=== PATIENT | male | born 1975 | race Asian ===

== ENCOUNTER 2024-10-20 00:41 | Emergency (ER) | payer SELFPAY ==
[2024-10-20 00:44] VITALS: BMI 22.4
[2024-10-20 01:03] VITALS: BP 133/80; PULSE 93; RESP 19; TEMP 37.1; O2SAT 98
--- NOTE | 2024-10-20 01:25 | XR_ITS ---
Examination: CT maxillofacial, without intravenous contrast. 2-D sagittal reconstructions. 3-D reconstructions. Date and time of exam:October 20, 2024 at 0249 hours INDICATIONS: Patient fell today with injury to the face, facial pain CTDI: vol (mGy):14.4 DLP: (mGycm):281 Technique: Multiple axial images of maxillofacial region, 3.0 mm slice thickness. 2-D sagittal and coronal reconstructions. 3-D reconstructions. Low dose protocols were performed. One or more of the following dose reduction techniques were used; automated exposure control, adjustment of the mA and/or KV according to patient size, use of iterative reconstruction technique. Findings: Mandible and maxilla is intact No acute nasal bone fracture No depression zygomatic arches Orbital rims appear intact There is subtle increased density in the left retro-orbital region, clinical correlation advised IMPRESSION: No acute facial fracture Subtle increased density in the left retro-orbital region, contusion in the retro-orbital fat is included in the differential, clinical correlation advised.
--- NOTE | 2024-10-20 01:25 | XR_ITS ---
Examination: CT cervical spine without contrast 2-D sagittal reconstructions 2-D coronal reconstructions 3-D reconstructions. Exam date and time:October 20, 2024 0249 hours INDICATIONS: Patient fell today with injury to the neck, neck pain CTDI:vol (mGy) 14.4 DLP: (mGycm) 373 Technique: Multiple 2 mm axial sections of the cervical spine have been obtained. The coronal and sagittal reconstructions have been obtained. 3-D reconstructions have been obtained. Low dose protocols were performed. One or more of the following dose reduction techniques were used; automated exposure control, adjustment of the mA and/or KV according to patient size, use of iterative reconstruction technique. Findings: Axial sections demonstrate intact base of the skull. C1 exhibit satisfactory relationship to the odontoid. No acute cervical vertebral body fracture seen. Alignment posterior spinous processes satisfactory. Impression: No acute cervical fracture. Right apical parenchymal disease, recommend AP chest AP lordotic chest follow-up
--- NOTE | 2024-10-20 01:25 | XR_ITS ---
Examination: CT brain head without contrast. 2-D sagittal coronal reconstructions Date and time of exam:October 20, 2024, 0249 hours INDICATIONS: Patient fell today with injury to the head, head pain and facial pain CTDI: vol (mGy):51.3 DLP: (mGycm):1003 Technique: Multiple CT axial sections of the brain have been obtained, 5 mm slice thickness. Contrast has not been administered. 2-D sagittal, coronal reconstructions have been obtained Low dose protocols were performed. One or more of the following dose reduction techniques were used; automated exposure control, adjustment of the mA and/or KV according to patient size, use of iterative reconstruction technique. Findings: No significant ventricular enlargement. Intra-axial or extra-axial hemorrhage density is not seen. No mass effect or midline shift Basal cisterns are not remarkable. Fourth ventricle is midline. Cranial vault intact. Ethmoid maxillary antral chronic sinusitis Impression: Negative for acute hemorrhage, mass effect or midline shift
--- NOTE | 2024-10-20 01:26 | PD.EDRME ---
Rapid Medical Screening Exam [facility] Arrival date/time: 10/20/24 00:41 49M with no significant PMH presents to ED with R nose and L eyelid lac after trip and fall. Patient denies LOC, AMS, seizures, N/V, and vision changes. Patient has not had a tetanus shot in the past 5 years. Chief Complaint: Fall Vital signs: Vital Signs Temperature 98.7 F 10/20/24 01:03 Pulse Rate 93 10/20/24 01:03 Respiratory Rate 19 10/20/24 01:03 Blood Pressure 133/80 H 10/20/24 01:03 Pulse Oximetry (%) 98 10/20/24 01:03 Oxygen Delivery Method Room Air 10/20/24 01:03
--- NOTE | 2024-10-20 01:41 | PD.EDFALL ---
ED Fall Injury RME/HPI General Chief Complaint: Fall Stated Complaint: FELL , FACIAL INJURY Time Seen by Provider: 10/20/24 01:40 Arrival date/time: 10/20/24 00:41 RME / HPI RME / HPI Narrative: 10/20/24 00:41 49M with no significant PMH presents to ED with R nose and L eyelid lac after trip and fall. Patient denies LOC, AMS, seizures, N/V, and vision changes. Patient has not had a tetanus shot in the past 5 years. --------- This section includes all my notes and documentations, including HPI, PE, and ED course. Miles Galloway MD HPI: 49yo male with no significant past medical history presents to the ED for a fall. Patient states he tripped and fell when he was outside just [employer] and hit his face on the metal part of the grill. He endorses having a laceration to his nose and eyelid. He denies any loss of consciousness. He denies any headache, neck pain, extremity pain, other pain or any other associated symptoms. No other complaints reported. ROS: All negative except as documented in HPI. Physical Exam: General: Alert and oriented. No acute distress when remaining still. Eyes: Conjunctivae and lids clear. ENT: No nasal congestion. Neck: Supple. Heart: RRR. Lungs: No respiratory distress. Good air movement. No rhonchi, wheezing, rales. Abdomen: Soft and nontender. Legs: No clubbing, cyanosis, edema. Skin: Warm and dry. 1.5 cm laceration to the bridge of the nose. 1 cm laceration to the left lower eyelid. Neuro: Alert and oriented X 3. I reviewed all diagnostic test results. My review of the CT report is At this point, diagnoses include face lacerations. Treatment here included tDap, Lidocaine, Bacitracin, and Augmentin. Significant improvement Based on my best medical judgment, made decision no further evaluation or treatment indicated at this time. Patient understands and agrees to the discharge instructions customized and printed, see below. Discharge instructions from Dr. Galloway: -- Fortunately, there is no very serious injury. Such as brain injury or broken bone or eye injury. -- Your nose laceration was repaired with 3 stitches. Your left eyelid laceration was repaired with 2 stitches. -- Keep each dressing intact for 24 hours. -- After 24 hours, change each dressing once daily. -- First remove each dressing gently. If it does not come off easily, run water through it until it comes off easily. -- Then gently wash with soap and water. -- After completely drying, apply antibiotic ointment and new dressing. -- See your doctor or return here on 10/23/2024 for suture removal. Total of 5 stitches. -- Seek immediate medical care with fever, spreading redness from the wound, or with any concerns. Miles Galloway MD Related Data Allergies Allergy/AdvReac Type Severity Reaction Status Date / Time No Known Allergies Allergy Verified 10/20/24 01:48 Review of Systems Review of Systems Systems Reviewed: All systems reviewed, normal except as documented Past Medical History Social History SMOKING STATUS: Current every day smoker ED Exam Narrative Physical exam: As noted in HPI. Course Quality Measures none Orders Category Date Time Status Wound Care NOW Care 10/20/24 01:[address] cervical spine wo con Stat Exams 10/20/24 01:[address] facial bones wo con Stat Exams 10/20/24 01:[address] head/brain wo con Stat Exams 10/20/24 01:25 Taken Amoxicillin/Pot Clav 875 [Augmentin 875] Med 10/20/24 01:40 Discontinued 1 tab PO X1 ONE Bacitracin Oint pkt Med 10/20/24 01:40 Discontinued 1 gm TOP X1 ONE Lidocaine 1% 20 ml [Xylocaine 1% 20 ML] Med 10/20/24 03:33 Discontinued 20 ml .ROUTE .STK-MED ONE Lidocaine 1% 20 ml [Xylocaine 1% 20 ML] Med 10/20/24 03:34 Discontinued 20 ml INFL X1 ONE TET,DIP/PERT AC (Adult)-Tdap [Boostrix Adult (Tdap) Med 10/20/24 01:25 Discontinued Vacc] 0.5 ml IMI .ONCE ONE Vital Signs Vital signs: Vital Signs Temperature 98.7 F 10/20/24 01:03 Pulse Rate 93 10/20/24 01:03 Respiratory Rate 19 10/20/24 01:03 Blood Pressure 133/80 H 10/20/24 01:03 Pulse Oximetry (%) 98 10/20/24 01:03 Oxygen Delivery Method Room Air 10/20/24 01:03 Procedures -ED Laceration Laceration 1: Site: face (nose) Size (cm): 1.5 Description: linear Depth: simple, single layer Local Anesthetic: lidocaine 1% Amount of anesthesia used (mL): 2 Pre-repair: irrigated extensively Skin layer closed with: nylon Size (cm): 4-0 Number of sutures: 3 Technique: simple, interrupted Laceration 2: Site: face (lower eyelid) Side (If applicable): left Size (cm): 1 Description: linear Depth: simple, single layer Local Anesthetic: lidocaine 1% Amount of anesthesia used (mL): 1 Pre-repair: irrigated extensively Skin layer closed with: nylon Size (cm): 4-0 Number of sutures: 2 Technique: simple, interrupted Fall MDM Narrative MDM Narrative:: Scribe Attestation: 10/20/24 - Jeannine Cueto am scribing for and in the presence of Dr. Galloway. Patient data External records reviewed:: [facility] previous records (Per chart review, patient has no previous ED visits or admissions to this facility.) Clinical information provided by:: patient Social determinants that could affect healthcare access:: none Patient has the following chronic illnesses:: none How is presenting disease/condition affected by chronic disease/condition?: no chronic disease Evaluation data The following diagnostics were reviewed and interpreted by me:: radiology exam(s) Lab and/or radiology exams considered but not ordered:: none Interpretation Summary: Face lacerations Medications / Prescriptions Medications or Prescriptions considered but not ordered:: none Medication administrations:: Medication Administration History Discontinued Medications Amoxicillin/Clavulanate Potassium (Amoxicillin/Pot Clav 875 Tablet) 1 tab PO X1 ONE Stop: 10/20/24 01:41 Last Admin: 10/20/24 02:07 Dose: 1 tab Documented By: ADROE Bacitracin (Bacitracin Oint 1 Gm Packet) 1 gm TOP X1 ONE Stop: 10/20/24 01:41 Last Admin: 10/20/24 02:07 Dose: 1 gm Documented By: ADORE Diphtheria/Tetanus/Acell Pertussis (Diphth,Pertuss(Acell),Tet Vac 0.5 Ml Syr- Adult) 0.5 ml IMi .ONCE ONE Stop: 10/20/24 01:26 Last Admin: 10/20/24 02:06 Dose: 0.5 ml Documented By: ADORE Lidocaine HCl (Lidocaine Hcl 1% 20 Ml Vial) 20 ml INFL X1 ONE Stop: 10/20/24 03:35 Last Admin: 10/20/24 03:49 Dose: 20 ml Documented By: CVL Lidocaine HCl (Lidocaine Hcl 1% 20 Ml Vial) Confirm Administered Dose 20 ml .ROUTE .STK-MED ONE Stop: 10/20/24 03:34 Last Admin: 10/20/24 03:49 Dose: Not Given Documented By: CVL Non-Admin Reason: Duplicate Medication on eMAR tDap, Lidocaine, Bacitracin, Augmentin Consultations Consultation(s) initiated? (list below): No Diagnosis Most likely diagnosis given after review of the tests above:: Face lacerations Admission Indicated Admission indicated?: not indicated Explain why admission is indicated or not indicated:: No criteria for admission. Admission Request Was there a request for admission?: No Disposition Plan Disposition Plan: Discharge Discharge Attestation Discharge Attestation: The patient and all family members were given an opportunity to ask questions and understood the discharge instructions. Discharge instructions specifically effects, indications for sooner follow up or return to the emergency department, and the expected course of current diagnosis. Patient condition: Stable Discharge Plan Plan Patient Disposition: HOME (Self Care) Problem List Clinical Impression: Face lacerations Patient/Caregiver Discharge Instructions Discharge Activity: activity as tolerated Education Materials: ED Laceration, Face: Stitches or Tape Additional Instructions: Discharge instructions from Dr. Galloway:? -- Fortunately, there is no very serious injury. Such as brain injury or broken bone or eye injury. -- Your nose laceration was repaired with 3 stitches. Your left eyelid laceration was repaired with 2 stitches. -- Keep each dressing intact for 24 hours. -- After 24 hours, change each dressing once daily. -- First remove each dressing gently.? If it does not come off easily, run water through it until it comes off easily. -- Then gently wash with soap and water. -- After completely drying, apply antibiotic ointment and new dressing. -- See your doctor or return here on 10/23/2024 for suture removal.? Total of 5 stitches. -- Seek immediate medical care with fever, spreading redness from the wound, or with any concerns. Print Language: [place] Stand Alone Forms: Lauren Award Info., Patient Portal Info Letter
[2024-10-20] MEDS: DIPHTH,PERTUSS(ACELL),TET VAC 0.5 ML SYR- ADULT IMi (02:06)
[2024-10-20] MEDS: AMOXICILLIN/POT CLAV 875 TABLET 1 TAB PO (02:07)
[2024-10-20] MEDS: BACITRACIN OINT 1 GM PACKET TOP (02:07)
--- NOTE | 2024-10-20 03:28 | PRELIM_ITS ---
CT scan of the cervical spine without intravenous contrast (axial sections with sagittal and coronal reformats) October 20, 2024 0249 hours Clinical History: Fall Comparison: No prior study is available for comparison. Findings: There is no evidence of acute fracture or traumatic subluxation. There is straightening of the cervical lordosis, which may be due to muscle spasm or positioning. Degenerative changes are noted in the form of multilevel marginal osteophytes, decreased disc spaces and facet arthropathy. The prevertebral soft tissues are unremarkable. There is scarring in bilateral lung apices. Impression: 1. No evidence of acute fracture or traumatic subluxation. 2. Degenerative changes as described above. 3. Other findings as described above. Suggest clinical correlation and follow up accordingly. Report Electronically Signed By: Willam Rodriguez 10/20/2024 3:27:40 AM [EST]
--- NOTE | 2024-10-20 03:30 | PRELIM_ITS ---
CT scan of the head without intravenous contrast (axial sections with sagittal and coronal reformats) October 20, 2024 0249 hours Clinical History: Fall Comparison: No prior study is available for comparison. Findings: There is no evidence of intracranial hemorrhage, mass effect or midline shift. The ventricles and CSF spaces are unremarkable. The calvarium is intact. There is mild mucosal thickening in the right maxillary sinus. There is a small retention cyst or polyp in the left maxillary sinus. The mastoid air cells and the other visualized paranasal sinuses are clear. Impression: No evidence of intracranial hemorrhage, midline shift or calvarial fracture. Other findings as described above. Suggest clinical correlation and follow up accordingly. Report Electronically Signed By: Willam Rodriguez 10/20/2024 3:29:48 AM [EST]
--- NOTE | 2024-10-20 03:32 | PRELIM_ITS ---
CT maxillofacial without intravenous contrast (axial sections with sagittal and coronal reformats). October 20, 2024 0249 hours Clinical History: Fall Comparison: No prior study is available for comparison. Findings: There is no evidence of acute fracture. There is subtle fat stranding in bilateral retrobulbar soft tissues, of indeterminate etiology. Both globes are intact. The maxillary sinus and orbital mckeon are intact. No fluid levels are seen. No evidence of intraorbital hematoma, proptosis or radiodense foreign body. The zygomatic arches and mandible are intact. Impression: 1. No evidence of acute maxillofacial fracture. 2. Subtle fat stranding in bilateral retrobulbar soft tissues, of indeterminate etiology. 3. Other findings as described above. Suggest clinical correlation and follow up accordingly. Report Electronically Signed By: Willam Rodriguez 10/20/2024 3:32:09 AM [EST]
[2024-10-20] MEDS: LIDOCAINE HCL 1% 20 ML VIAL INFL (03:49)
[2024-10-20 04:11] VITALS: RESP 18
[2024-10-20 04:14] VITALS: BP 135/87; PULSE 87; RESP 19; TEMP 36.7
== END 2024-10-20 04:14 | disposition home or self-care (01) ==
PROVIDERS: Emergency Provider Emergency Medicine
DX: S01.112A Laceration without foreign body of left eyelid and periocular area, initial encounter (principal); S01.21XA Laceration without foreign body of nose, initial encounter; W01.0XXA Fall on same level from slipping, tripping and stumbling without subsequent striking against object, initial encounter; M54.2 Cervicalgia; Z23 Encounter for immunization
CPT/HCPCS: 12013; 70450; 70486; 72125; 90471; 90715; 99284; J3490; A9270

== ENCOUNTER 2024-10-23 11:22 | Emergency (ER) | payer SELFPAY ==
[2024-10-23 11:44] VITALS: BP 145/96; PULSE 81; RESP 18; TEMP 37.1; O2SAT 98; BMI 22.4
[2024-10-23 11:52] VITALS: BP 159/97; PULSE 95; RESP 20; TEMP 37.1; O2SAT 96; BMI 36.1
--- NOTE | 2024-10-23 12:13 | PD.EDWOUND ---
ED Wound/Laceration-RME/HPI General Chief Complaint: Wound Recheck / Suture Removal Stated Complaint: SUTURE REMOVAL Time Seen by Provider: 10/23/24 11:28 Arrival date/time: 10/23/24 11:22 49-year-old male presents to the emergency department today patient was under the understanding he was supposed to return today for suture removal patient had sutures placed 3 days ago Limitations: no limitations Related Data Allergies Allergy/AdvReac Type Severity Reaction Status Date / Time No Known Allergies Allergy Verified 10/23/24 11:24 Review of Systems Review of Systems Systems Reviewed: All systems reviewed, normal except as documented Constitutional Constitutional: Reports system reviewed and no additional complaints, except as documented, Denies fever(s) and Denies headache(s) Eyes Eyes: Reports system reviewed and no additional complaints, except as documented and Denies blurry vision ENT Ears, Nose, Mouth, and Throat: Reports system reviewed and no additional complaints, except as documented, Denies headache(s), Denies nasal congestion and Denies nasal discharge Cardiovascular Cardiovascular: Reports system reviewed and no additional complaints, except as documented, Denies chest pain and Denies dyspnea Respiratory Respiratory: Reports system reviewed and no additional complaints, except as documented, Denies chest congestion, Denies cough and Denies dyspnea Gastrointestinal Gastrointestinal: Reports system reviewed and no additional complaints, except as documented and Denies abdominal pain Integumentary/Breasts Skin/Breast: Reports system reviewed and no additional complaints, except as documented, Denies rash and Reports wounds (Sutures in place facial) Neurologic Neurologic: Reports system reviewed and no additional complaints, except as documented, Reports as per HPI and Denies headache(s) Past Medical History Social History SMOKING STATUS: Current every day smoker ED Exam General Limitations: Present no limitations General appearance: Present alert and in no apparent distress Head Head exam: Present atraumatic Eye Eye exam: Present normal appearance, PERRL and EOMI ENT ENT exam: Present normal exam, normal oropharynx and mucous membranes moist Neck Neck exam: Present normal inspection, full ROM and trachea midline Chest Chest inspection: Present normal inspection and symmetric chest wall rise Respiratory Respiratory exam: Present normal lung sounds bilaterally; Absent respiratory distress, wheezes or stridor Cardiovascular Cardiovascular exam: Present regular rate, normal rhythm and normal heart sounds; Absent bradycardia, tachycardia or irregular rhythm Abdominal Exam Abdominal exam: Present soft and normal bowel sounds Extremities Exam Extremities exam: Present normal inspection and full ROM Back Exam Back exam: Present normal inspection and full ROM Neurological Exam Neurological exam: Present alert, oriented X3 and CN II-XII intact Psychiatric Psychiatric exam: Present normal affect and normal mood Skin Skin exam: Present warm, dry, intact and normal color Course Quality Measures none Vital Signs Vital signs: Vital Signs Temperature 98.7 F 10/23/24 11:44 Pulse Rate 81 10/23/24 11:44 Respiratory Rate 18 10/23/24 11:44 Blood Pressure 145/96 H 10/23/24 11:44 Pulse Oximetry (%) 98 10/23/24 11:44 Oxygen Delivery Method Room Air 10/23/24 11:44 O2 saturation 98% r.a wnl Wound / Laceration MDM Narrative MDM Narrative:: 49-year-old male presents to the emergency department today patient was under the understanding he was supposed to return today for suture removal patient had sutures placed 3 days ago On exam patient well-appearing patient does not appear ill or toxic and in no acute distress On exam patient has sutures in place wound is well-approximated no active bleeding no discharge Patient discharged home in no distress to follow-up with primary care doctor in the next 24 to 48 hours and for any worsening symptoms to return to the ER immediately Patient data External records reviewed:: [facility] previous records Clinical information provided by:: patient Social determinants that could affect healthcare access:: none Patient has the following chronic illnesses:: None How is presenting disease/condition affected by chronic disease/condition?: no chronic disease Evaluation data The following diagnostics were reviewed and interpreted by me:: other (specify) (N/A) Lab and/or radiology exams considered but not ordered:: Consider not ordered Interpretation Summary: N/A Medications / Prescriptions Medications or Prescriptions considered but not ordered:: Given no meds Medication administrations:: Given no meds Consultations Consultation(s) initiated? (list below): No Diagnosis Wound Differential Diagnosis: laceration, abrasion and avulsion of skin Most likely diagnosis given after review of the tests above:: Laceration Admission Indicated Admission indicated?: not indicated Admission Request Was there a request for admission?: No Disposition Plan Disposition Plan: Discharge Discharge Attestation Discharge Attestation: The patient and all family members were given an opportunity to ask questions and understood the discharge instructions. Discharge instructions specifically effects, indications for sooner follow up or return to the emergency department, and the expected course of current diagnosis. Patient condition: Stable Discharge Plan Plan Patient Disposition: HOME (Self Care) Disposition Comment: Stable Prescriptions/Referrals Referrals: No Primary/Family,Physician [Primary Care Provider] - 10/24/24 Problem List Clinical Impression: Encounter for removal of sutures Patient/Caregiver Discharge Instructions Education Materials: Suture Care Additional Instructions: Please return in 3 to 4 days for removal of sutures for worsening symptoms return immediately Print Language: [place] Stand Alone Forms: Lauren Award Info., Patient Portal Info Letter PA/ÓSCAR Supervising Physician KARISHMA/ÓSCAR Supervising Physician: Dr Ruiz
== END 2024-10-23 12:17 | disposition home or self-care (01) ==
PROVIDERS: Emergency Provider Emergency Medicine
DX: Z48.02 Encounter for removal of sutures (principal)
CPT/HCPCS: 99281

== ENCOUNTER 2024-10-27 10:11 | Emergency (ER) | payer SELFPAY ==
[2024-10-27 11:06] VITALS: BP 148/93; PULSE 79; RESP 19; TEMP 37.2; O2SAT 98; BMI 22.1
--- NOTE | 2024-10-27 11:14 | EDNOTE_ITS ---
<Statement entered by Cary Alfaro MD - 10/27/24 17:34> As co-signing physician, I was present and available for consult prn. I concur with the plan and care as documented by the midlevel provider. ED General RME/HPI General Chief complaint: Wound Recheck / Suture Removal Stated complaint: SUTURE REMOVAL Time Seen by Provider: 10/27/24 11:07 Arrival date/time: 10/27/24 10:11 CC: Suture removal of the bridge of the nose and left upper eyelid 7 days ago sutures were placed it. Site is clean dry and intact well-healing Related Data Allergies Allergy/AdvReac Type Severity Reaction Status Date / Time No Known Allergies Allergy Verified 10/23/24 11:24 Review of Systems Review of Systems Systems Reviewed: All systems reviewed, normal except as documented Past Medical History Social History SMOKING STATUS: Current some day smoker ED Exam Narrative Physical exam: Skin: Laceration of the bridge of the nose is well-healed, small laceration to the upper eyelid of the left eye is well-healed. Course Quality Measures none Vital Signs Vital signs: Vital Signs Temperature 98.9 F 10/27/24 11:06 Pulse Rate 79 10/27/24 11:06 Respiratory Rate 19 10/27/24 11:06 Blood Pressure 148/93 H 10/27/24 11:06 Pulse Oximetry (%) 98 10/27/24 11:06 Oxygen Delivery Method Room Air 10/27/24 11:06 Procedures -ED Procedure Comment 5 sutures removed without complication patient tolerated the procedure well. MDM Patient data External records reviewed:: [facility] previous records Clinical information provided by:: patient Social determinants that could affect healthcare access:: none Patient has the following chronic illnesses:: None right distal How is presenting disease/condition affected by chronic disease/condition?: uneffected by Evaluation data The following diagnostics were reviewed and interpreted by me:: other (specify) (None) Lab and/or radiology exams considered but not ordered:: None Interpretation Summary: Suture removed without complications Medications Medications considered but not ordered:: None Medication administrations:: None Consultations Consultation(s) initiated? (list below): No Diagnosis Differential Diagnosis ED Complaint MDM: Laceration infection laceration suture removal. Most likely diagnosis given after review of the tests above:: Encounter for suture removal Admission Indicated Admission indicated?: not indicated Explain why admission is indicated or not indicated:: Stable for outpatient follow-up Admission Request Was there a request for admission?: No Disposition Plan Disposition Plan: Discharge Discharge Attestation Discharge Attestation: The patient and all family members were given an opportunity to ask questions and understood the discharge instructions. Discharge instructions specifically effects, indications for sooner follow up or return to the emergency department, and the expected course of current diagnosis. Patient condition: Stable Medical Decision Making Differential Diagnosis Differential Diagnosis: Laceration infection laceration suture removal. Discharge Plan Plan Patient Disposition: HOME (Self Care) Patient condition on transfer: Stable Problem List Clinical Impression: Encounter for removal of sutures Patient/Caregiver Discharge Instructions Education Materials: ED Stitches/Staple Removal No ... Print Language: Ma[place] Stand Alone Forms: Lauren Award Info., Work/School Release, Patient Portal Info Letter KARISHMA/ÓSCAR Supervising Physician KARISHMA/ÓSCAR Supervising Physician: Butch Burks ENP
== END 2024-10-27 11:37 | disposition home or self-care (01) ==
LOC: SERX 11:28
PROVIDERS: Emergency Provider Emergency Medicine
DX: Z48.02 Encounter for removal of sutures (principal)
CPT/HCPCS: 99282